=== PATIENT | female | born 1940 | race Caucasian/White ===

== ENCOUNTER 2016-10-07 14:34 | Observation (INO) | payer OTHER ==
[~2016-10-07] VITALS: Ht 157.5 cm; Wt 86.6 kg
[~2016-10-07 14:34] MED LIST: Dulcolax PR; Duragesic TD; FENOGLIDE120 MG PO; Flexeril PO; LIDODERM 5% P1 PATCH TD; Maxzide 75/50 PO; Megace PO; Percocet 7.5/325,End PO; TRILIPIX135 MG PO; Tenormin PO; Vitamin D PO; Vitamin-E PO; Zestril,Prinivil PO; Zocor PO
[2016-10-07 15:43] LABS: HEMATOCRIT 43.7 % (36.0-46.0); MCH 32.8 PG (29.0-34.0); MCHC 34.1 G/DL (30.0-36.0); MCV 96.3 FL (83-99); MEAN PLAT.VOLUME 9.8 uM^3 (9.5-12.4); PLATELET COUNT 224 K/uL (156-360); RBC DIS.WIDTH-CV 12.1 % (11.8-14.6); RBC DIS.WIDTH-SD 42.8 % (39-53); RED BLOOD COUNT 4.54 M/uL (3.80-5.20); WHITE BLOOD COUNT 11.7 K/uL (4.1-10.2)
[2016-10-07 15:55] LABS: CHLORIDE 102 mEq/L (99-109); POTASSIUM 2.8 mEq/L (3.7-5.4); SODIUM 142 mEq/L (136-147)
[2016-10-07 15:57] LABS: GLUCOSE 98 mg/dL (70-99)
[2016-10-07 15:58] LABS: ANION GAP 13 MEQ/L (2-14)
[2016-10-07 16:00] LABS: GFR ESTIMATE (CALCULATED) 52 mL/min/
[2016-10-07 16:01] LABS: UREA NITROGEN (BUN) 24 mg/dL (9-23)
[2016-10-07 16:07] LABS: TROP-I INTERPRETATION NEGATIVE; TROPONIN-I 0.01 ng/mL (0.0-0.30)
[2016-10-07 16:09] LABS: INFLUENZA A VIRAL ANTIGEN NEGATIVE; INFLUENZA B VIRAL ANTIGEN NEGATIVE
[2016-10-07 17:22] LABS: MAGNESIUM 1.9 mg/dL (1.3-2.7)
[2016-10-07] MEDS ORDERED: ATENOLOL50 MG PO (19:17)
[2016-10-07] MEDS ORDERED: VITAMIN D2000 UNIT PO (19:19)
[2016-10-07] MEDS ORDERED: LIDOCAINE700 MG TD (19:20)
[2016-10-07] MEDS ORDERED: HYDROCHLOROTHIA25 MG PO (19:21)
[2016-10-07] MEDS ORDERED: SIMVASTATIN80 MG PO (19:21)
[2016-10-07] MEDS ORDERED: PERCOCET 7.51 TABLET PO (19:22)
[2016-10-07] MEDS ORDERED: VITAMIN E400 UNIT PO (19:22)
[2016-10-07] MEDS ORDERED: TOPAMAX100 MG PO (19:23)
[2016-10-07] MEDS ORDERED: CEFTIN500 MG PO (19:25)
[2016-10-07] MEDS ORDERED: LO-DOSE ASPIRIN81 M2 PO (19:27)
[2016-10-07] MEDS ORDERED: BIOTIN2500 MCG PO (19:34)
[2016-10-07] MEDS ORDERED: MELATONIN5 M4 PO (19:35)
[2016-10-07 20:05] VITALS: BP 136/78
[2016-10-07 23:50] VITALS: BP 148/82
[2016-10-08 04:59] VITALS: BP 178/99
[2016-10-08 06:17] LABS: HEMATOCRIT 40.6 % (36.0-46.0); MCH 32.9 PG (29.0-34.0); MCHC 34.2 G/DL (30.0-36.0); MEAN PLAT.VOLUME 10.3 uM^3 (9.5-12.4); PLATELET COUNT 192 K/uL (156-360); RBC DIS.WIDTH-CV 12.2 % (11.8-14.6); RBC DIS.WIDTH-SD 42.5 % (39-53); RED BLOOD COUNT 4.23 M/uL (3.80-5.20); WHITE BLOOD COUNT 9.7 K/uL (4.1-10.2)
[2016-10-08 06:24] LABS: ANION GAP 12 MEQ/L (2-14); CHLORIDE 101 MEQ/L (99-109); GFR ESTIMATE (CALCULATED) > 59 mL/min/; GLUCOSE 130 mg/dL (70-99); POTASSIUM 2.8 MEQ/L (3.7-5.4); SAMPLE HEMOLYSIS CHECK 0; SAMPLE ICTERIC CHECK 0; SAMPLE LIPEMIA CHECK 0; SODIUM 142 MEQ/L (136-147); UREA NITROGEN (BUN) 22 mg/dL (9-23)
[2016-10-08 08:16] VITALS: BP 149/69
[2016-10-08 11:49] VITALS: BP 123/58
[2016-10-08] MEDS ORDERED: AZITHROMYCIN500 M1 PO (12:56)
[2016-10-08] MEDS ORDERED: MUCINEX600 MG PO (12:56)
[2016-10-08] MEDS ORDERED: BENZONATATE100 MG PO (12:56)
[2016-10-08 14:43] LABS: ANION GAP 13 MEQ/L (2-14); CHLORIDE 101 MEQ/L (99-109); GFR ESTIMATE (CALCULATED) 52 mL/min/; GLUCOSE 171 mg/dL (70-99); POTASSIUM 3.4 MEQ/L (3.7-5.4); SAMPLE HEMOLYSIS CHECK 0; SAMPLE ICTERIC CHECK 0; SAMPLE LIPEMIA CHECK 0; SODIUM 140 MEQ/L (136-147); UREA NITROGEN (BUN) 27 mg/dL (9-23)
[2016-10-08] MEDS ORDERED: K-DUR20 MEQ PO (14:44)
[2016-10-08] MEDS ORDERED: PREDNISONE10 MG PO (15:02)
== END 2016-10-08 16:38 | disposition home or self-care (01) ==
LOC: EME 14:34 → EDOF 18:29 → 5WEST 19:13
PROVIDERS: Emergency Medicine; Hospitalist; Nurse Practitioner Adult Health
DX: J20.9 Acute bronchitis, unspecified (principal); E87.6 Hypokalemia; D72.829 Elevated white blood cell count, unspecified; I89.0 Lymphedema, not elsewhere classified; I10 Essential (primary) hypertension; E78.5 Hyperlipidemia, unspecified; M19.90 Unspecified osteoarthritis, unspecified site; Z85.118 Personal history of other malignant neoplasm of bronchus and lung; Z85.41 Personal history of malignant neoplasm of cervix uteri
CPT/HCPCS: 71020; 80048; 80048 91; 83735; 83880; 84132 91; 84484; 85027; 87502; 93005; 94640; 94760; 99202; 99281; 99285; G0378; J1644; J3480; J7070; J7512